=== PATIENT | male | born 1970 | race Caucasian/White ===

== ENCOUNTER 2017-08-22 07:18 | Emergency (ER) | payer SELFPAY ==
[~2017-08-22] VITALS: Ht 177.8 cm; Wt 82.2 kg
[~2017-08-22 07:18] MED LIST: ANXIETY MED; AZIT250T89; BISA10SU54 PR; DIAZ2TAB PO; ENAL20TA PO; FENT1PAT9 TD; GABA600T PO; HYDR-3245 PO; LOVA20TA2 PO; METH500T97 PO; MORP10CA10 PO; MORP30TA81 PO; OXYC-307 PO; PAIN PUMP; SOLUMEDROL
[2017-08-22] MEDS ORDERED: SODIUM CHLORIDE 0.9% 1,000 ML IV ONE (07:56)
[2017-08-22] MEDS ORDERED: ONDANSETRON 2MG/ML, 2ML IVPush ONE (08:00)
[2017-08-22] MEDS ORDERED: SODIUM CHLORIDE 0.9% 1,000ML IVBOLUS ONE (08:00)
[2017-08-22] MEDS ORDERED: KETOROLAC 30 MG/1 ML IVPush ONE (08:00)
[2017-08-22] MEDS ORDERED: MORPHINE SULFATE 4 MG/ML, 1ML IVPush PRN (08:00)
[2017-08-22] MEDS ORDERED: morphine SULFATE 10 MG/ML, 1ML ONE (08:06)
[2017-08-22] MEDS ORDERED: KETOROLAC 30 MG/1 ML ONE (08:06)
[2017-08-22] MEDS ORDERED: ONDANSETRON 2MG/ML, 2ML ONE (08:06)
[2017-08-22 08:30] LABS: HEMATOCRIT 48.8 % (39.2-51.8); HEMOGLOBIN 16.6 g/dL (13.7-18.0); WHITE BLOOD COUNT 14.2 x10^3/uL (3.4-10)
[2017-08-22 08:42] LABS: ASPARTATE AMINO TRANSFERASE 27 U/L (15-37); BLOOD UREA NITROGEN 10 mg/dL (7-18)
[2017-08-22 10:16] VITALS: BP 143/86
== END 2017-08-22 10:19 | disposition home or self-care (01) ==
LOC: ED 10:10
DX: B34.9 Viral infection, unspecified (principal); K85.90 Acute pancreatitis without necrosis or infection, unspecified; G89.29 Other chronic pain; M54.6 Pain in thoracic spine; M54.5 Low back pain; G43.909 Migraine, unspecified, not intractable, without status migrainosus; F41.9 Anxiety disorder, unspecified; F32.9 Major depressive disorder, single episode, unspecified
CPT/HCPCS: 36415; 71020; 80053; 81003; 83690; 85025; 87081; 87880; 93005; 96361; 96374; 96375; 99285; J1885; J2405; J7030

== ENCOUNTER 2018-05-08 07:57 | Emergency (ER) | payer OTHER ==
[~2018-05-08] VITALS: Ht 177.8 cm; Wt 77.0 kg
[2018-05-08] MEDS ORDERED: LORazepam 2 MG/ML, 1ML ONE (08:37)
[2018-05-08 08:39] LABS: BASOPHILS # (AUTO) 0.03 x10^3/uL (0-0.1); BASOPHILS % (AUTO) 0 % (0-1); EOSINOPHILS # (AUTO) 0.17 x10^3/uL (0-0.4); EOSINOPHILS % (AUTO) 1 % (1-7); LYMPHOCYTES # (AUTO) 2.11 x10^3/uL (1-3.4); LYMPHOCYTES % (AUTO) 16 % (22-44); MD NO; MEAN CORPUSCULAR HEMOGLOBIN 29.4 pg (27.5-34.5); MEAN CORPUSCULAR HGB CONC 33.7 g/dL (33.2-36.2); MEAN CORPUSCULAR VOLUME 87.3 fL (81-97); MEAN PLATELET VOLUME 7.6 fL (7.4-10.4); MONOCYTES # (AUTO) 0.86 x10^3/uL (0.2-0.8); MONOCYTES % (AUTO) 6 % (2-9); NEUTROPHILS # (AUTO) 10.22 x10^3/uL (1.8-6.8); NEUTROPHILS % (AUTO) 76 % (42-75); PLATELET COUNT 377 x10^3/uL (130-400); RED BLOOD COUNT 5.51 x10^6/uL (4.38-5.82); RED CELL DISTRIBUTION WIDTH 14.3 % (9.4-14.8)
[2018-05-08 08:48] LABS: ALBUMIN 4.5 g/dL (3.4-5.0); ANION GAP 9 mmol/L (5-15); CHLORIDE 101 mmol/L (98-107)
[2018-05-08 08:55] LABS: CREATININE 0.96 mg/dL (0.7-1.3); TROPONIN I < 0.015 ng/mL (0.000-0.045)
[2018-05-08] MEDS ORDERED: SODIUM CHLORIDE 0.9% 1,000 ML IV ONE (09:00)
[2018-05-08] MEDS ORDERED: SODIUM CHLORIDE 0.9% 1,000ML IVBOLUS ONE (09:00)
[2018-05-08] MEDS ORDERED: SODIUM CHLORIDE FLUSH 10ML SYR IVF ONE (09:00)
[2018-05-08] MEDS ORDERED: LORazepam 2 MG/ML, 1ML IVPush ONE (09:00)
[2018-05-08 11:05] VITALS: BP 143/82
== END 2018-05-08 13:16 | disposition home or self-care (01) ==
LOC: ED 13:04
DX: R07.89 Other chest pain (principal); F14.10 Cocaine abuse, uncomplicated; F17.210 Nicotine dependence, cigarettes, uncomplicated; G43.909 Migraine, unspecified, not intractable, without status migrainosus; I10 Essential (primary) hypertension; E78.5 Hyperlipidemia, unspecified
CPT/HCPCS: 36415; 71046; 80048; 82040; 84484; 85025; 93005; 96374; 99285; J2060; J7030

== ENCOUNTER 2018-05-13 11:46 | Day surgery (SDC) | payer OTHER ==
[~2018-05-13] VITALS: Ht 177.8 cm; Wt 80.7 kg
[2018-05-13 12:23] VITALS: BP 114/72
[2018-05-13] MEDS ORDERED: SODIUM CHLORIDE 0.9% 500 ML IV ONE ×2 (12:30→12:50)
[2018-05-13] MEDS ORDERED: LIDOCAINE-MPF 2%, 2ML ONE (12:55)
[2018-05-13] MEDS ORDERED: LIDOCAINE-MPF 1%, 5ML ONE (13:03)
[2018-05-13] MEDS ORDERED: MEPERIDINE/PF 50 MG/ML ONE (14:58)
[2018-05-13] MEDS ORDERED: MEPERIDINE/PF 25MG/0.5ML ONE (14:59)
[2018-05-13] MEDS: MEPERIDINE/PF 100 MG/ML IM PRN ×2 (15:10→15:37)
== END 2018-05-13 17:40 | disposition home or self-care (01) ==
LOC: OUT 11:46
PROVIDERS: ATTEND Registered Nurse Registered Nurse First Assistant
DX: M51.24 Other intervertebral disc displacement, thoracic region (principal); E78.5 Hyperlipidemia, unspecified; I10 Essential (primary) hypertension; F14.10 Cocaine abuse, uncomplicated; G43.909 Migraine, unspecified, not intractable, without status migrainosus; F17.210 Nicotine dependence, cigarettes, uncomplicated; Z72.0 Tobacco use; Z98.890 Other specified postprocedural states; Z79.899 Other long term (current) drug therapy
CPT/HCPCS: 62284; 72072; 72110; 72129; 72132; J2175; J7040; Q9965; J3490